=== PATIENT | male | born 1960 | race Caucasian/White ===

== ENCOUNTER 2017-04-14 11:24 | Day surgery (SDC) | payer SELFPAY ==
[2017-04-12 13:27] LABS: HEMATOCRIT 42.5 % (40.0-51.0)
[2017-04-12 13:38] LABS: BUN (BLOOD UREA NITROGEN) 9 MG/DL (6-23); CHLORIDE, SERUM 103 MMOL/L (96-112); CO2 (CARBON DIOXIDE) 29 MMOL/L (24-34); CREATININE 0.95 MG/DL (0.70-1.30); GFR AFRICAN AMERICAN 102 ML/MIN (>=60); GFR NON AFRICAN AMERICAN 88 ML/MIN (>=60); GLUCOSE, SERUM 103 MG/DL (60-99); POTASSIUM, SERUM 4.5 MMOL/L (3.5-5.3); SODIUM, SERUM 140 MMOL/L (135-148)
[~2017-04-14] VITALS: Ht 177.8 cm; Wt 79.4 kg
--- NOTE | ~2017-04-14 | OP ---
Record Of Operation [facility] [address] [place]. [address] NAME: DENNIS NEELY JR : 56 STATUS : [facility]#: [id number] AGE: 56 ADM/REG DATE : 04/14/17 MR#: [id number] REPORT SERV DATE: 04/14/17 DICTATED BY: Kristopher GERARDO DATE: 04/14/17 REPORT STATUS : Draft TRANSCRIBED BY: POLY DATE: 04/14/17 DATE OF PROCEDURE: 04/14/2017 PREOPERATIVE DIAGNOSIS: Elevated PSA. POSTOPERATIVE DIAGNOSIS: Elevated PSA. PROCEDURE: Transrectal ultrasound-guided needle biopsy of the prostate. ANESTHESIA: MAC. COMPLICATIONS: None. DRAINS: None. BRIEF HISTORY: Mr. Neely is a 56-year-old white male seen by me recently with a history of an elevated PSA. PSA was 5.4 in March. He had 15 days of antibiotics and it went down to 4.62, but he had a low free PSA of 5%. It was my feeling that a biopsy was appropriate as his digital exam showed a 2+ symmetric gland. We discussed the risks of bleeding, infection, anesthesia, injury to adjacent organs, inability to detect cancer even if present, etc. There were no unanswered questions. It should also be noted he has hypogonadism, so this makes his low PSA even more worrisome. DESCRIPTION OF PROCEDURE: Under excellent MAC anesthesia, the patient was placed in the left lateral decubitus position with knees to chest. Transrectal ultrasonography was performed and showed a symmetric prostate with multiple calcifications bilaterally. It measured 38 mL. I used the biopsy probe and obtained two cores from the left base, three from the left mid gland, and two from the left apex; similarly 2 cores from the right base, 3 cores from the right mid gland, and 2 cores from the right apex for a total of 14 cores. The patient tolerated the procedure well and will be discharged as an outpatient with the following instructions. DISCHARGE INSTRUCTIONS: 1. Home today. 2. Resume anticoagulation in 48 hours. 3. Follow up in my office in one week to review pathology. 4. To call for excessive bleeding or fever. SALLIE/POLY Kristopher Gerardo M.D. / [id number] Record Of [address] [address] NAME: DENNIS NEELY JR : 56 STATUS : [facility] PAT#: [id number] AGE: 56 ADM/REG DATE : 04/14/17 MR#: [id number] REPORT SERV DATE: 04/14/17 DICTATED BY: Kristopher GERARDO DATE: 04/14/17 REPORT STATUS : Draft TRANSCRIBED BY: POLY DATE: 04/14/17 CC: Hunter Bynum M.D.
[~2017-04-14 11:24] MED LIST: EDOX60TA PO; ENDOCET1 TA3 PO; FLEX PO; NEUR400 PO; OXYCON20 PO; PRIN20 PO
== END 2017-04-14 14:52 | disposition home or self-care (01) ==
LOC: SDC 11:24
PROC: 0VB03ZX Excision of Prostate, Percutaneous Approach, Diagnostic (ICD-10-PCS; principal; 2017-04-14 12:45)
DX: C61 Malignant neoplasm of prostate (principal); I10 Essential (primary) hypertension; D68.59 Other primary thrombophilia; E66.01 Morbid (severe) obesity due to excess calories; Z68.39 Body mass index [BMI] 39.0-39.9, adult; R97.20 Elevated prostate specific antigen [PSA]; Z86.718 Personal history of other venous thrombosis and embolism; Z86.711 Personal history of pulmonary embolism; Z79.899 Other long term (current) drug therapy; Z98.890 Other specified postprocedural states
CPT/HCPCS: 76872; 76942; 80048; 85014; 85018; 88305; 88342; 88344; 93005; J2250